=== PATIENT | female | born 1965 | race African-American/Black ===

== ENCOUNTER → 2017-12-27 | Outpatient (CLI) | payer OTHER ==
--- NOTE | 2017-12-27 08:27 | RAD ---
Complete abdominal ultrasound 12/27/2017 7:50 AM Clinical History: abd pain Technique: Ultrasound examination of the abdomen was performed, and multiple static images were submitted for review. Comparison: None Findings: The visualized portions of the pancreas are within normal limits. The visualized aorta and IVC are unremarkable. The gallbladder is normal in appearance without wall thickening, stones, or sludge. No pericholecystic fluid is seen. Sonographic Talamantes's sign is negative. The common duct is nondilated measuring 4 mm in diameter which is within normal limits. The liver measures 16 cm longitudinally which is normal.. Liver is diffusely echogenic suggesting hepatic steatosis.. No intrahepatic biliary ductal dilatation is seen. No focal hepatic lesions are identified. Spleen is unremarkable in appearance. The bilateral kidneys are normal in appearance without evidence of obstructive uropathy, nephrolithiasis, or focal renal lesion. Right kidney measures 11.7 cm in length. Left kidney measures 11.4 cm in length. Impression: 1. Probable hepatic steatosis 2. Otherwise unremarkable abdominal ultrasound Electronically signed by: Jake Johnson MD (12/27/2017 8:24 AM) [id number]
--- NOTE | 2017-12-27 09:35 | RAD ---
DATE: 12/27/2017 EXAM: DIGITAL SCREEN BILAT W/CAD HISTORY: Routine screening COMPARISON: 06/26/2016 This study was interpreted with the benefit of Computerized Aided Detection (CAD). Breast Density: FATTY The breast parenchyma is primarily fatty replaced. Breast parenchyma level density A. FINDINGS: There are benign-appearing lymph node type densities projected over the axillary regions. No suspicious breast densities are seen. No suspicious microcalcifications are seen. IMPRESSION: Stable mammograms without evidence of malignancy. BI-RADS CATEGORY: 2 BENIGN FINDING(S) RECOMMENDED FOLLOW-UP: 12M 12 MONTH FOLLOW-UP PQRS compliance statement: Patient information was entered into a reminder system with a target due date for the next mammogram. Mammography is a sensitive method for finding small breast cancers, but it does not detect them all and is not a substitute for careful clinical examination. A negative mammogram does not negate a clinically suspicious finding and should not result in delay in biopsying a clinically suspicious abnormality. "Our facility is accredited by the [employer] Mammography Program."
== END | disposition home or self-care (01) ==
LOC: US 07:41
PROVIDERS: ATTEND Family Medicine
DX: Z12.31 Encounter for screening mammogram for malignant neoplasm of breast (principal); R10.84 Generalized abdominal pain
CPT/HCPCS: 76700; 77067

== ENCOUNTER → 2020-07-15 | Outpatient (CLI) | payer OTHER ==
[~2020-07-15] MED LIST: CASIRIVIMAB/IMDEVIMAB 1200/1200mg in IV NS TV=250 ML IV ONE
[2020-07-15 14:55] VITALS: BP 142/74
[2020-07-15 16:52] VITALS: BP 130/86
== END | disposition home or self-care (01) ==
LOC: OPS 13:09
PROVIDERS: ATTEND Family Medicine
DX: U07.1 COVID-19 (principal)
CPT/HCPCS: J7050; M0243; Q0243; J7030